=== PATIENT | female | born 1960 | race Caucasian/White ===

== ENCOUNTER 2018-03-01 18:33 | Emergency (ER) | payer BC ==
[~2018-03-01] VITALS: Ht 177.8 cm; Wt 80.0 kg
[2018-03-01] MEDS ORDERED: INSU100V12 SQ (19:22)
[2018-03-01] MEDS ORDERED: LISI-600 PO (19:22)
[2018-03-01] MEDS ORDERED: HYDR-565 PO (19:22)
[2018-03-01 19:32] LABS: BASOPHILS # (AUTO) 0.1 X10'3 (0-0.2); BASOPHILS % (AUTO) 0.8 % (0-1); EOSINOPHILS # (AUTO) 0.1 X10'3 (0-0.9); EOSINOPHILS % (AUTO) 0.7 % (0-6); HEMATOCRIT 48.9 % (35.0-45.0); HEMOGLOBIN 16.6 g/dl (12.0-16.0); LYMPHOCYTES # (AUTO) 1.7 X10'3 (1.1-4.8); LYMPHOCYTES % (AUTO) 10.4 % (21-51); MEAN CORPUSCULAR HEMOGLOBIN 29.7 PG (27.0-31.0); MEAN CORPUSCULAR HGB CONC 34.1 % (33.0-36.5); MEAN CORPUSCULAR VOLUME 87.3 FL (78-98); MEAN PLATELET VOLUME 9.2 FL (7.4-10.4); MONOCYTES # (AUTO) 0.6 X10'3 (0-0.9); MONOCYTES % (AUTO) 3.9 % (2-12); NEUTROPHILS # (AUTO) 13.7 X10'3 (1.8-7.7); NEUTROPHILS % (AUTO) 84.2 % (42-75); PLATELET COUNT 233 X10'3 (140-440); WHITE BLOOD COUNT 16.2 X10'3 (4.5-11.0)
[2018-03-01 19:46] LABS: ALANINE AMINOTRANSFERASE 14 U/L (12-78); ALBUMIN 3.3 G/DL (3.4-5.0); ALBUMIN/GLOBULIN RATIO 0.8 (1.1-1.5); ALKALINE PHOSPHATASE 100 IU/L (46-116); ANION GAP 9 (8-16); ASPARTATE AMINO TRANSFERASE 11 U/L (10-37); BILIRUBIN,TOTAL 0.8 MG/DL (0.1-1.0); BLOOD UREA NITROGEN 8 MG/DL (7-18); BUN/CREATININE RATIO 9.8 (6.6-38.0); CALCIUM 9.3 MG/DL (8.5-10.1); CHLORIDE 97 MMOL/L (99-107); CREATININE 0.82 MG/DL (0.40-0.90); GLUCOSE 274 MG/DL (70-104); LIPASE 183 U/L (73-393); SODIUM 135 MMOL/L (135-145); TOTAL CARBON DIOXIDE 28.9 MMOL/L (24-32); TOTAL PROTEIN 7.5 G/DL (6.4-8.2); eGFR 72 ML/MIN
[2018-03-01 20:05] LABS: CLARITY,URINE SLIGHTLY CLOUDY (Clear); COLOR,URINE YELLOW (Yellow); GLUCOSE, URINE >=1000 mg/dl (Neg); KETONES,URINE NEGATIVE (Neg); LEUKOCYTE ESTERASE ,URINE SMALL (Neg); OCCULT BLOOD,URINE NEGATIVE (Neg); PH,URINE 6.5 (4.8-8.0); PROTEIN,URINE NEGATIVE (Neg); UROBILINOGEN,URINE 0.2 E.U/dL (0.2-1.0)
[2018-03-01 20:13] LABS: UA COLLECTION TYPE CLN CATCH MIDSTREAM
[2018-03-01] MEDS ORDERED: normal saline 1000ML IV soln IVB ONE ×2 (20:15→20:20)
[2018-03-01] MEDS ORDERED: CefTRIAXone 2gm/D5W 50ml 50 ML IV ONE (20:15)
[2018-03-01] MEDS ORDERED: ondansetron/PF 4mg/2ml inj IV ONE (20:20)
[2018-03-01] MEDS ORDERED: ketorolac trometh. 30mg/ml inj. IV ONE (20:20)
[2018-03-01] MEDS ORDERED: ketorolac tromethamine 15mg/ml inj. IV ONE (20:25)
[2018-03-01 20:30] LABS: NITRITES, URINE POSITIVE (Neg)
[2018-03-01 20:32] LABS: BACTERIA,URINE 4+ /HPF (Neg); MUCUS STRANDS NONE SEEN /LPF (Neg); RBC,URINE 0-2 /HPF (0-2); SQUAMOUS EPITHELIAL CELL,UR FEW /LPF (FEW)
[2018-03-01] MEDS ORDERED: ONDA4TAB9 PO (21:26)
[2018-03-01] MEDS ORDERED: HYDR-3965 PO (21:26)
[2018-03-01] MEDS ORDERED: CEPH-572 PO (21:26)
[2018-03-01 23:21] VITALS: BP 136/78
[2018-03-02 00:48] LABS: PLATELET ESTIMATE NORMAL; TOTAL CELLS COUNTED 100
== END 2018-03-01 23:24 | disposition home or self-care (01) ==
LOC: ER 18:33
DX: N39.0 Urinary tract infection, site not specified (principal); E11.65 Type 2 diabetes mellitus with hyperglycemia; G89.29 Other chronic pain; Z90.49 Acquired absence of other specified parts of digestive tract; Z79.4 Long term (current) use of insulin; Z79.899 Other long term (current) drug therapy
CPT/HCPCS: 36415; 74176; 80053; 81001; 82948; 83690; 85025; 87077; 87088; 87186; 96365; 96375; 99285; J0696; J1885; J2405

== ENCOUNTER 2019-03-30 17:45 | Inpatient (IN) | payer BC ==
[~2019-03-30] VITALS: Ht 167.6 cm; Wt 78.0 kg
[~2019-03-30 17:45] MED LIST: HYDR-4353 PO; INSU100V12 SQ; LISI-600 PO
[2019-03-30] MEDS ORDERED: morphine 4 MG/ML inj SYRINge IV ONE ×2 (18:20→22:15)
[2019-03-30] MEDS ORDERED: normal saline 1000ML IV soln IVB ONE ×2 (18:20→22:15)
[2019-03-30] MEDS ORDERED: ondansetron/PF 4mg/2ml inj IV ONE ×2 (18:20→22:15)
[2019-03-30 18:28] LABS: BASOPHILS % (AUTO) 0.1 % (0-1); EOSINOPHILS % (AUTO) 0.2 % (0-6); HEMATOCRIT 47.2 % (35.0-45.0); HEMOGLOBIN 16.1 g/dl (12.0-16.0); LYMPHOCYTES # (AUTO) 0.7 X10'3 (1.1-4.8); LYMPHOCYTES % (AUTO) 3.5 % (21-51); MEAN CORPUSCULAR HEMOGLOBIN 30.6 PG (27.0-31.0); MEAN CORPUSCULAR HGB CONC 34.2 g/dL (33.0-36.5); MEAN CORPUSCULAR VOLUME 89.6 FL (78-98); MEAN PLATELET VOLUME 10.3 FL (7.4-10.4); MONOCYTES % (AUTO) 5.1 % (2-12); NEUTROPHILS # (AUTO) 17.8 X10'3 (1.8-7.7); NEUTROPHILS % (AUTO) 91.1 % (42-75); PLATELET COUNT 110 X10'3 (140-440); RED BLOOD COUNT 5.27 X10'6 (4.20-5.60); RED CELL DISTRIBUTION WIDTH 12.4 % (11.5-14.5); WHITE BLOOD COUNT 19.6 X10'3 (4.5-11.0)
[2019-03-30 18:34] LABS: ALANINE AMINOTRANSFERASE 20 U/L (12-78); ALBUMIN 2.6 G/DL (3.4-5.0); ALBUMIN/GLOBULIN RATIO 0.6 (1.1-1.5); ALKALINE PHOSPHATASE 126 IU/L (46-116); ANION GAP 11 (8-16); ASPARTATE AMINO TRANSFERASE 13 U/L (10-37); BILIRUBIN,TOTAL 0.8 MG/DL (0.1-1.0); BLOOD UREA NITROGEN 13 MG/DL (7-18); BUN/CREATININE RATIO 14.9 (6.6-38.0); CALCIUM 8.9 MG/DL (8.5-10.1); CHLORIDE 95 MMOL/L (99-107); CREATININE 0.87 MG/DL (0.40-0.90); GLUCOSE 316 MG/DL (70-104); LIPASE 68 U/L (73-393); POTASSIUM 3.8 MMOL/L (3.5-5.1); SODIUM 131 MMOL/L (135-145); TOTAL CARBON DIOXIDE 24.7 MMOL/L (24-32); eGFR 67 ML/MIN
[2019-03-30] MEDS ORDERED: LIDOcaine Viscous 15ml cup PO ONE (18:40)
[2019-03-30] MEDS ORDERED: insulin regular, human 10 units/0.1 ml syringe IV ONE ×2 (18:40→20:55)
[2019-03-30] MEDS ORDERED: famotidine/PF 10 mg/ml inj IV ONE (18:40)
[2019-03-30] MEDS ORDERED: mag hydrox/Alum hydrox/simeth 30ml oral suspension PO ONE (18:40)
--- NOTE | 2019-03-30 19:07 | NUR ---
JENNIFER LOBATO, AT BEDSIDE AND IS SUPPORTIVE AND HELPFUL. PT IS A&OX4 . REMAINSA VERY NAUSEAUS. UNABLE TO VOID AT THIS EDIL, SHE IS AWARE WE NEED URINE SAMPLE. 1ST OF 2 LITERS NS BOLUS INFUSING , ZOFRAN AND INSULIN GIVEN.
[2019-03-30 19:08] LABS: PLATELET ESTIMATE DECREASED; TOTAL CELLS COUNTED 100
--- NOTE | 2019-03-30 19:09 | NUR ---
DR CLARKE IN TO CHECK ON PT, UPDATED THAT PT UNABLE TO GIVEN URINE YET AND FLUIDS JUST STARTED.
[2019-03-30] MEDS ORDERED: metoclopramide 5 mg/ml inj IV ONE (20:00)
[2019-03-30 20:07] LABS: CLARITY,URINE SLIGHTLY CLOUDY (Clear); COLOR,URINE YELLOW (Yellow); GLUCOSE, URINE >=1000 mg/dl (Neg); KETONES,URINE NEGATIVE (Neg); LEUKOCYTE ESTERASE ,URINE SMALL (Neg); NITRITES, URINE NEGATIVE (Neg); OCCULT BLOOD,URINE MODERATE (Neg); PROTEIN,URINE TRACE mg/dl (Neg); UROBILINOGEN,URINE 0.2 E.U/dL (0.2-1.0)
[2019-03-30 20:10] LABS: UA COLLECTION TYPE OTHER
[2019-03-30 20:16] LABS: BACTERIA,URINE 4+ /HPF (Neg); SQUAMOUS EPITHELIAL CELL,UR MODERATE /LPF (FEW); WBC,URINE TNTC /HPF (0-4)
[2019-03-30 20:17] LABS: RBC,URINE 0-2 /HPF (0-2)
[2019-03-30] MEDS ORDERED: CefTRIAXone/D5W-Rocephin 1gm 50 ML IV ONE (21:00)
[2019-03-30] MEDS ORDERED: HYDR-3965 PO (21:15)
[2019-03-30] MEDS ORDERED: ONDA8TAB6 PO (21:15)
[2019-03-30] MEDS ORDERED: ketorolac tromethamine 15mg/ml inj. IV ONE (22:25)
--- NOTE | 2019-03-30 22:58 | NUR ---
pts osito reinoso, cell [phone], saying good night to pt as pt now awaiting hospitalist. pt given msiv 4mg, toradol for fever of 101.8 and zofran. pt reporting pain going from a 10 to 5 immediately after admin of morphine. hr 110.
[2019-03-30] MEDS ORDERED: INSU100I31 SQ (23:06)
[2019-03-30] MEDS ORDERED: HYDR-3972 PO (23:06)
[2019-03-30] MEDS ORDERED: ESTR1PAT93 TD (23:06)
[2019-03-30] MEDS ORDERED: OMEP-50 PO (23:06)
[2019-03-30] MEDS ORDERED: ATOR40TA72 PO (23:06)
[2019-03-30] MEDS: normal saline 1000ml 1,000 ML IV SCH (23:37)
[2019-03-30] MEDS ORDERED: mag hydrox/Alum hydrox/simeth 30ml oral suspension PO PRN (23:40)
[2019-03-30] MEDS ORDERED: ondansetron/PF 4mg/2ml inj IV PRN (23:40)
[2019-03-30] MEDS ORDERED: magnesium hydroxide 30ml (MOM) UD suspension PO PRN (23:40)
[2019-03-30] MEDS ORDERED: acetaminophen 325mg tablet PO PRN (23:40)
[2019-03-30] MEDS ORDERED: morphine 2 MG/ML inj. syringe IV PRN (23:40)
--- NOTE | 2019-03-30 23:40 | NUR ---
dr vargas at bedside for admission, temp now 100 orally and hr 107
[2019-03-30] MEDS ORDERED: dextrose 50%-water 50ml dispensing syringe IV PRN ×2 (23:45)
[2019-03-30] MEDS ORDERED: dextrose ORAL solution 15 GM/59 ML bottle PO PRN ×2 (23:45)
[2019-03-30] MEDS ORDERED: glucagon, human recombinant 1mg kit SUBCUT PRN (23:45)
[2019-03-30] MEDS ORDERED: MESSAGE TO PHARMACY PO ONE (23:45)
[2019-03-31 00:11] LABS: HEMOGLOBIN A1C 6.3 % (4.5-6.2)
--- NOTE | 2019-03-31 01:21 | NUR ---
Patient in room [facility]. I have received report from DEVONTE Jose [facility] and had the opportunity to ask questions and assume patient care.
[2019-03-31 01:30] VITALS: BP 117/61
[2019-03-31] MEDS: morphine 2 MG/ML inj. syringe IV PRN ×4 (02:48→22:17)
[2019-03-31 05:05] LABS: BASOPHILS % (AUTO) 0.2 % (0-1); EOSINOPHILS % (AUTO) 0.3 % (0-6); HEMATOCRIT 43.1 % (35.0-45.0); HEMOGLOBIN 14.3 g/dl (12.0-16.0); LYMPHOCYTES # (AUTO) 0.6 X10'3 (1.1-4.8); MEAN CORPUSCULAR HEMOGLOBIN 30.2 PG (27.0-31.0); MEAN CORPUSCULAR HGB CONC 33.1 g/dL (33.0-36.5); MEAN CORPUSCULAR VOLUME 91.3 FL (78-98); MEAN PLATELET VOLUME 10.1 FL (7.4-10.4); MONOCYTES # (AUTO) 0.8 X10'3 (0-0.9); NEUTROPHILS # (AUTO) 11.2 X10'3 (1.8-7.7); NEUTROPHILS % (AUTO) 88.5 % (42-75); PLATELET COUNT 91 X10'3 (140-440); RED BLOOD COUNT 4.72 X10'6 (4.20-5.60); RED CELL DISTRIBUTION WIDTH 12.3 % (11.5-14.5); WHITE BLOOD COUNT 12.6 X10'3 (4.5-11.0)
[2019-03-31 05:31] LABS: ALANINE AMINOTRANSFERASE 18 U/L (12-78); ALBUMIN 2.2 G/DL (3.4-5.0); ALBUMIN/GLOBULIN RATIO 0.6 (1.1-1.5); ALKALINE PHOSPHATASE 113 IU/L (46-116); ANION GAP 7 (8-16); ASPARTATE AMINO TRANSFERASE 14 U/L (10-37); BILIRUBIN,TOTAL 0.7 MG/DL (0.1-1.0); BLOOD UREA NITROGEN 10 MG/DL (7-18); BUN/CREATININE RATIO 10.9 (6.6-38.0); CALCIUM 8.2 MG/DL (8.5-10.1); CHLORIDE 100 MMOL/L (99-107); CREATININE 0.92 MG/DL (0.40-0.90); GLUCOSE 205 MG/DL (70-104); POTASSIUM 3.7 MMOL/L (3.5-5.1); SODIUM 135 MMOL/L (135-145); TOTAL CARBON DIOXIDE 27.7 MMOL/L (24-32); TOTAL PROTEIN 5.9 G/DL (6.4-8.2); eGFR 63 ML/MIN
--- NOTE | 2019-03-31 06:29 | NUR ---
Problems reprioritized. Patient report given, questions answered & plan of care reviewed with DEVONTE Barajas.
--- NOTE | 2019-03-31 06:47 | NUR ---
Patient in room [facility]. I have received report from Jayda Simon RN and had the opportunity to ask questions and assume patient care.
[2019-03-31 07:18] LABS: PLATELET ESTIMATE DECREASED
[2019-03-31 07:29] VITALS: BP 114/54
[2019-03-31] MEDS ORDERED: heparin, porcine 5000 units/ml vial SQ SCH (08:00)
[2019-03-31] MEDS: CefTRIAXone/D5W-Rocephin 1gm 50 ML IV SCH (08:18)
[2019-03-31] MEDS: pantoprazole 40mg Tablet.DR PO SCH (08:19)
[2019-03-31] MEDS: lisinopril 10 MG tablet PO SCH (08:19)
[2019-03-31] MEDS: normal saline 1000ml 1,000 ML IV SCH ×2 (09:37→12:21)
[2019-03-31 12:39] VITALS: BP 108/55
[2019-03-31] MEDS: ondansetron/PF 4mg/2ml inj IV PRN (15:14)
--- NOTE | 2019-03-31 18:30 | NUR ---
Problems reprioritized. Patient report given, questions answered & plan of care reviewed with Pat RN.
[2019-03-31] MEDS: insulin Lispro (HumaLOG) vial - multi-dose SQ SCH (19:16)
[2019-03-31] MEDS: proCHLORperazine 10 MG/2 ml inj IV PRN (19:19)
[2019-03-31 20:00] VITALS: BP 114/55
[2019-03-31 20:15] VITALS: BP 128/56
[2019-03-31] MEDS: insulin glargine (Lantus) pen - multi-dose SQ SCH (22:03)
[2019-04-01] VITALS: BP 121/70
[2019-04-01] MEDS: normal saline 1000ml 1,000 ML IV SCH ×3 (00:01→17:18)
[2019-04-01] MEDS: proCHLORperazine 10 MG/2 ml inj IV PRN ×2 (01:54→17:16)
[2019-04-01 04:43] LABS: BASOPHILS % (AUTO) 0.3 % (0-1); EOSINOPHILS # (AUTO) 0.1 X10'3 (0-0.9); EOSINOPHILS % (AUTO) 0.9 % (0-6); HEMATOCRIT 39.4 % (35.0-45.0); HEMOGLOBIN 13.3 g/dl (12.0-16.0); LYMPHOCYTES # (AUTO) 0.8 X10'3 (1.1-4.8); MEAN CORPUSCULAR HEMOGLOBIN 30.4 PG (27.0-31.0); MEAN CORPUSCULAR HGB CONC 33.7 g/dL (33.0-36.5); MEAN CORPUSCULAR VOLUME 90.1 FL (78-98); MEAN PLATELET VOLUME 9.8 FL (7.4-10.4); MONOCYTES # (AUTO) 1.1 X10'3 (0-0.9); MONOCYTES % (AUTO) 8.2 % (2-12); NEUTROPHILS # (AUTO) 11.6 X10'3 (1.8-7.7); NEUTROPHILS % (AUTO) 84.6 % (42-75); PLATELET COUNT 95 X10'3 (140-440); RED BLOOD COUNT 4.38 X10'6 (4.20-5.60); RED CELL DISTRIBUTION WIDTH 12.3 % (11.5-14.5); WHITE BLOOD COUNT 13.7 X10'3 (4.5-11.0)
[2019-04-01 05:02] LABS: ALANINE AMINOTRANSFERASE 33 U/L (12-78); ALBUMIN/GLOBULIN RATIO 0.6 (1.1-1.5); ALKALINE PHOSPHATASE 118 IU/L (46-116); ANION GAP 7 (8-16); ASPARTATE AMINO TRANSFERASE 33 U/L (10-37); BILIRUBIN,TOTAL 0.8 MG/DL (0.1-1.0); BLOOD UREA NITROGEN 9 MG/DL (7-18); BUN/CREATININE RATIO 11.3 (6.6-38.0); CALCIUM 7.9 MG/DL (8.5-10.1); CHLORIDE 102 MMOL/L (99-107); GLUCOSE 196 MG/DL (70-104); SODIUM 135 MMOL/L (135-145); TOTAL CARBON DIOXIDE 25.9 MMOL/L (24-32); TOTAL PROTEIN 5.5 G/DL (6.4-8.2); eGFR 74 ML/MIN
[2019-04-01] MEDS ORDERED: magnesium 4gm in 100ml NS 100 ML IV PRN (05:50)
[2019-04-01] MEDS ORDERED: magnesium 2GM in 50ml NS 50 ML IV PRN (05:50)
[2019-04-01] MEDS ORDERED: potassium CL 10mEq/100ml bag 100 ML IV PRN (05:50)
[2019-04-01] MEDS ORDERED: potassium Cl 20 mEq SR tablet PO PRN (05:50)
[2019-04-01] MEDS ORDERED: magnesium Cl slow-release 64mg tablet PO PRN (05:50)
--- NOTE | 2019-04-01 06:30 | NUR ---
Patient in room [facility]. I have received report from Pat RN and had the opportunity to ask questions and assume patient care.
[2019-04-01 07:10] LABS: MAGNESIUM 1.8 MG/DL (1.5-2.4)
[2019-04-01] MEDS: lisinopril 10 MG tablet PO SCH (07:44)
[2019-04-01] MEDS: pantoprazole 40mg Tablet.DR PO SCH (07:44)
[2019-04-01] MEDS: CefTRIAXone/D5W-Rocephin 1gm 50 ML IV SCH (07:45)
[2019-04-01 08:00] VITALS: BP 108/70
--- NOTE | 2019-04-01 10:08 | NUR ---
DM consult: Patient's A1c is 6.3; DM ed not warranted at this time. Will continue to follow. Addendum: 04/01/19 at [address] Amended: Links added.
--- NOTE | 2019-04-01 10:15 | NUR ---
Discussed insulin covered with primary RN Karl. Because the coverage was a little bit late we opted to only cover her blood sugar and not what she had eaten for breakfast. Will re-check at 1200.
[2019-04-01] MEDS: insulin Lispro (HumaLOG) vial - multi-dose SQ SCH ×2 (10:27→14:34)
[2019-04-01 11:00] VITALS: BP 126/59
[2019-04-01] MEDS: HYDROcodone/acetaminophen 10/325mg tab PO PRN ×2 (12:53→20:17)
[2019-04-01] MEDS: potassium Cl 20 mEq SR tablet PO PRN ×2 (17:16→22:12)
--- NOTE | 2019-04-01 18:30 | NUR ---
Patient in room [facility]. I have received report from DEVONTE Barajas and had the opportunity to ask questions and assume patient care. Addendum: 04/02/19 at 0100 by Aleksandra Royal RN Amended: Links added.
--- NOTE | 2019-04-01 18:43 | NUR ---
Problems reprioritized. Patient report given, questions answered & plan of care reviewed with Ivett WHITNEY.
--- NOTE | 2019-04-01 20:15 | NUR ---
Pt does not want any bath, hair brushed or washed. states will take shower when discharged. "I will shower twice at home" Back of hair is matted pt states it is okay does not need any help with it. Addendum: 04/02/19 at 0108 by Aleksandra Royal RN Amended: Links added.
[2019-04-01] MEDS: lactobacillus rhamnosus 10,000 MMU CELLS/CAPSULE PO SCH (20:17)
[2019-04-01] MEDS: insulin glargine (Lantus) pen - multi-dose SQ SCH (21:17)
[2019-04-01 22:11] VITALS: BP 136/68
[2019-04-02] MEDS: morphine 2 MG/ML inj. syringe IV PRN ×2 (01:35→08:20)
[2019-04-02] MEDS: normal saline 1000ml 1,000 ML IV SCH (01:35)
[2019-04-02] MEDS: potassium Cl 20 mEq SR tablet PO PRN (03:03)
[2019-04-02] MEDS: HYDROcodone/acetaminophen 10/325mg tab PO PRN (03:03)
--- NOTE | 2019-04-02 06:35 | NUR ---
Problems reprioritized. Patient report given, questions answered & plan of care reviewed with DEVONTE Dalton. Addendum: 04/02/19 at 0635 by Aleksandra Royal RN Amended: Links added.
[2019-04-02 07:00] VITALS: BP 104/59
[2019-04-02 07:10] LABS: BASOPHILS % (AUTO) 0.2 % (0-1); EOSINOPHILS # (AUTO) 0.2 X10'3 (0-0.9); EOSINOPHILS % (AUTO) 2.4 % (0-6); HEMATOCRIT 39.6 % (35.0-45.0); HEMOGLOBIN 13.1 g/dl (12.0-16.0); LYMPHOCYTES # (AUTO) 1.3 X10'3 (1.1-4.8); LYMPHOCYTES % (AUTO) 12.7 % (21-51); MEAN CORPUSCULAR HEMOGLOBIN 30.2 PG (27.0-31.0); MEAN CORPUSCULAR HGB CONC 33.2 g/dL (33.0-36.5); MEAN CORPUSCULAR VOLUME 91.2 FL (78-98); MEAN PLATELET VOLUME 9.7 FL (7.4-10.4); MONOCYTES # (AUTO) 0.9 X10'3 (0-0.9); MONOCYTES % (AUTO) 8.6 % (2-12); NEUTROPHILS # (AUTO) 7.8 X10'3 (1.8-7.7); NEUTROPHILS % (AUTO) 76.1 % (42-75); PLATELET COUNT 118 X10'3 (140-440); RED BLOOD COUNT 4.34 X10'6 (4.20-5.60); RED CELL DISTRIBUTION WIDTH 12.6 % (11.5-14.5); WHITE BLOOD COUNT 10.2 X10'3 (4.5-11.0)
[2019-04-02 07:27] LABS: ALANINE AMINOTRANSFERASE 36 U/L (12-78); ALBUMIN/GLOBULIN RATIO 0.6 (1.1-1.5); ALKALINE PHOSPHATASE 104 IU/L (46-116); ANION GAP 5 (8-16); ASPARTATE AMINO TRANSFERASE 28 U/L (10-37); BILIRUBIN,TOTAL 0.6 MG/DL (0.1-1.0); BLOOD UREA NITROGEN 8 MG/DL (7-18); BUN/CREATININE RATIO 10.7 (6.6-38.0); CALCIUM 8.1 MG/DL (8.5-10.1); CHLORIDE 106 MMOL/L (99-107); CREATININE 0.75 MG/DL (0.40-0.90); GLUCOSE 199 MG/DL (70-104); POTASSIUM 4.1 MMOL/L (3.5-5.1); SODIUM 138 MMOL/L (135-145); TOTAL CARBON DIOXIDE 26.7 MMOL/L (24-32); TOTAL PROTEIN 5.6 G/DL (6.4-8.2); eGFR 79 ML/MIN
[2019-04-02] MEDS: lisinopril 10 MG tablet PO SCH (08:00)
[2019-04-02] MEDS: CefTRIAXone/D5W-Rocephin 1gm 50 ML IV SCH (08:04)
[2019-04-02] MEDS: lactobacillus rhamnosus 10,000 MMU CELLS/CAPSULE PO SCH (08:04)
[2019-04-02] MEDS: pantoprazole 40mg Tablet.DR PO SCH (08:04)
[2019-04-02] MEDS: ondansetron/PF 4mg/2ml inj IV PRN (08:20)
[2019-04-02 11:00] VITALS: BP 115/62
[2019-04-02] MEDS ORDERED: LEVO500T2 PO (11:22)
== END 2019-04-02 13:15 | disposition home or self-care (01) | DRG 872 ==
LOC: ER 17:47 → SUR 3N 23:40
PROVIDERS: ADMIT Internal Medicine; ATTEND Family Medicine
DX: A41.9 Sepsis, unspecified organism (principal); D61.818 Other pancytopenia; E87.1 Hypo-osmolality and hyponatremia; N13.6 Pyonephrosis; N17.9 Acute kidney failure, unspecified; B96.20 Unspecified Escherichia coli [E. coli] as the cause of diseases classified elsewhere; E11.9 Type 2 diabetes mellitus without complications; E78.5 Hyperlipidemia, unspecified; E87.6 Hypokalemia; I10 Essential (primary) hypertension; Z90.49 Acquired absence of other specified parts of digestive tract; Z79.4 Long term (current) use of insulin; Z79.899 Other long term (current) drug therapy
CPT/HCPCS: 36415; 74176; 76700; 80053; 81001; 82948; 83036; 83690; 83735; 84145; 85025; 85610; 87077; 87081; 87088; 87186; 96361; 96365; 96375; 96376; 99285; G0378; J0696; J0780; J1644; J1815; J1885; J2270; J2405; J2765; J3490; J7030